=== PATIENT | male | born 1960 | race Caucasian/White ===

== ENCOUNTER 2021-08-06 12:34 | Outpatient (CLI) | payer MEDICAID, SELFPAY ==
[2021-08-06] MEDS: Methacholine Chloride 18 ml neb kit INHALATION (13:11)
--- NOTE | 2021-08-06 13:40 | CPS ---
Patient received 5 of the 6 doses of Methacholine including the normal saline dose. Positive test was achieved before the 16mg/ml dose. Dose was disposed of in the pharmaceutical waste bin.
--- NOTE | 2021-08-06 14:42 | BRONCHALL_ITS ---
Bronchoprovocation Challenge Bronchoprovocation Challenge Bronchoprovocation Challenge: BRONCHOPROVOCATION STUDY INTERPRETATION Brief HPI: Patient is a 61 year old male, currently under the care of Dr. Alexandra, who presents to [facility] for a bronchoprovocation study secondary to diagnosis of cough. Respiratory therapist reports good effort and reproducible results. Interpretation: Initial spirometry showed no large airways obstructive ventilatory defect. The patient was then given increasingly concentrated doses of methacholine in a stepwise/standardized fashion, using a modified ATS protocol. The patient had a significant reduction in FEV1 by 38% and a calculated PD20 of 0.064. Impression: Positive bronchoprovocation study in a range consistent with a diagnosis of asthma
== END 2021-08-06 23:59 | disposition short-term general hospital (02) ==
LOC: PSN 12:37
PROVIDERS: PCP Internal Medicine; Referring Provider Internal Medicine; Visit Provider Internal Medicine
DX: R05.9 Cough, unspecified (principal)
CPT/HCPCS: 94070; 95070